=== PATIENT | male | born 1985 | race Two or more races ===

== ENCOUNTER 2025-08-07 16:09 | Emergency (ER) | payer OTHER ==
[~2025-08-07] VITALS: Ht 152.4 cm; Wt 72.6 kg
[~2025-08-07 16:09] MED LIST: ACET-2247 PO; EMPA25TA3 PO; IBUP-1492 PO; INSU3INS3 SQ; SULF1TAB94 PO
[2025-08-07 18:58] VITALS: BP 127/86; PULSE 60; RESP 16; TEMP 98.9; O2SAT 100
[2025-08-07 19:51] LABS: PLATELET COUNT (AUTO) 344 K/uL (150-450); RED BLOOD CELL COUNT(AUTO) 4.44 MIL/uL (4.50-5.90); RED CELL DISTRIBUTION WIDTH 13.1 % (11.5-14.5); WHITE BLOOD COUNT (AUTO) 8.8 K/uL (4.5-11.0)
[2025-08-07 20:00] LABS: CALCIUM, TOTAL 9.0 mg/dL (8.8-10.5); CREATININE 0.78 mg/dL (0.60-1.30); GLOMERULAR FILTR. RATE CALC > 60 mL/min (>60); GLUCOSE,RANDOM 155 mg/dL (70-110); SODIUM SERUM 137 mmol/L (136-145); UREA NITROGEN, BLOOD 10 mg/dL (7-18)
[2025-08-07 20:09] LABS: LACTIC ACID 1.0 mmol/L (0.4-2.0)
[2025-08-08] MEDS ORDERED: INSLAN SQ (15:37)
[2025-08-08] MEDS ORDERED: LISI-661 PO (15:37)
[2025-08-08] MEDS ORDERED: METF-1185 PO (15:37)
[2025-08-10] MEDS ORDERED: INSU100V SQ (10:55)
[2025-08-10] MEDS ORDERED: MAGN-169 PO (10:56)
== END 2025-08-07 21:02 ==
LOC: EMS 16:09
DX: S71.101A Unspecified open wound, right thigh, initial encounter (principal); E11.9 Type 2 diabetes mellitus without complications; I10 Essential (primary) hypertension; Z79.4 Long term (current) use of insulin; Z79.899 Other long term (current) drug therapy; X58.XXXA Exposure to other specified factors, initial encounter; Y93.89 Activity, other specified; Y92.89 Other specified places as the place of occurrence of the external cause; Y99.8 Other external cause status
CPT/HCPCS: 80048; 83605; 85025; 99283